=== PATIENT | male | born 1935 | race Hispanic/Latino ===

== ENCOUNTER 2021-10-23 23:04 | Inpatient (IN) | payer MEDICARE, OTHER ==
[~2021-10-23] VITALS: Ht 165.1 cm
[~2021-10-23 23:04] MED LIST: ALBUTEROL SULF8.5 GM INH; ALBUTEROL2.5 MG/0.5 INH; AMLODIPINE BESY10 MG PEG; ARTIFICIAL TEA1 EAC1 OP; CEFEPIME HCL1 GM SQ; ENALAPRIL MALE2.5 MG PO; ETODOLAC500 M1 PO; FENOFIBRATE145 MG PO; FERROUS SU220 MG/5 M PEG; FUROSEMIDE40 MG PEG; GABAPENTIN300 MG PO; GLIPIZIDE10 MG PO; HEPARIN SO5000 UNIT2 SQ; HUMALOG100 UNIT/1 SC; LEVAQUIN-D750 MG/150 IV; LEVEMIR100 UNIT/1 SC; LEVEMIR100 UNIT/1 SQ; LEVOTHYROXINE75 MCG PEG; LISINOPRIL10 MG PO; METFORMIN HCL1000 MG PO; METOPROLOL TART50 MG PEG; METOPROLOL TART50 MG PO; ONDANSETRO4 MG/UDTAB PO; PANTOPRAZOLE SO40 MG PEG; PIOGLITAZONE45 MG OP; POTASSIUM CHLO10 ME1 PEG; SIMVASTATIN40 MG PO; TAMSULOSIN HCL0.4 MG PO; TIZANIDINE HCL4 M1 PO; ULTRAM 50MG50 MG PO; ULTRAM50 MG PO; ZYRTEC10 M3 PEG
[2021-10-23] MEDS ORDERED: SODIUM CHLORIDE 0.9% 1000ML 1,000 ML IV STA (23:09)
[2021-10-23 23:27] LABS: BASOPHILS % 0.3 % (0.0-1.0); EOSINOPHILS # (AUTO) 0.1 (0.0-0.4); EOSINOPHILS % 0.8 % (0.0-6.0); HEMATOCRIT 35.6 % (38.2-49.6); HEMOGLOBIN 11.1 g/dL (14.0-18.0); LYMPHOCYTES # (AUTO) 3.5 (1.0-3.2); LYMPHOCYTES % 23.6 % (18.0-39.1); MEAN CORPUSCULAR HEMOGLOBIN 30.7 pg (28-32); MEAN CORPUSCULAR HGB CONC 31.2 g/dL (31-35); MEAN CORPUSCULAR VOLUME 98.3 fL (81-99); MONOCYTES # (AUTO) 1.1 (0.2-0.8); MONOCYTES % 7.1 % (4.4-11.3); NEUTROPHILS # (AUTO) 10.1 (2.1-6.9); NEUTROPHILS % 67.6 % (38.7-80.0); PLATELET COUNT 278 x10e3/uL (140-360); RED BLOOD COUNT 3.62 x10e6/uL (4.3-5.7); RED CELL DISTRIBUTION WIDTH 14.2 % (11.7-14.4)
[2021-10-23 23:52] LABS: ALBUMIN 2.1 g/dL (3.5-5.0); ALBUMIN/GLOBULIN RATIO 0.5 (0.8-2.0); ANION GAP 15.8 mmol/L (8-16); CALCIUM 9.3 mg/dL (8.4-10.2); CREATININE, SERUM 1.75 mg/dL (0.72-1.25); POTASSIUM 3.8 mmol/L (3.5-5.1)
[2021-10-23 23:53] LABS: B-TYPE NATRIURETIC PEPTIDE2 < 10.0 pg/mL (0-100)
[2021-10-24] VITALS (9 sets, daily range): BP systolic 93–119; BP diastolic 45–74
[2021-10-24] MEDS ORDERED: PIPERACILLIN/TAZOBACTAM 3.375 GM in SODIUM CHLORIDE 0.9% 50ML 50 ML IV ONE ×2
[2021-10-24] MEDS ORDERED: SODIUM CHLORIDE 0.9% 1000ML 1,000 ML IV STA ×2 (00:07)
[2021-10-24] MEDS ORDERED: SODIUM CHLORIDE 0.9% 1000ML 1,000 ML IV SCH (00:45)
[2021-10-24] MEDS ORDERED: Morphine 2mg Syringe 2 MG/ML SYR IV STA (01:27)
[2021-10-24] MEDS: NOREPINEPHRINE 8 MG/D5W 250 ML 250 ML IV SCH (01:30)
[2021-10-24 03:34] LABS: CLARITY,URINE CLEAR (CLEAR); COLOR,URINE YELLOW (YELLOW); KETONES,URINE NEGATIVE (NEGATIVE); LEUKOCYTE ESTERASE ,URINE NEGATIVE (NEGATIVE); NITRITE,URINE NEGATIVE (NEGATIVE); PROTEIN,URINE DIPSTICK NEGATIVE (NEGATIVE); URINE UROBILINOGEN 0.2 mg/dL (0.2 - 1)
[2021-10-24 03:39] LABS: BACTERIA,URINE FEW /HPF; EPITHELIAL CELLS,URINE MODERATE /LPF; WBC,URINE (MAN) 0-5 /HPF (0-5)
[2021-10-24] MEDS ORDERED: HYDRALAZINE HCL 20 MG/ML VIAL IV PRN (04:15)
[2021-10-24] MEDS ORDERED: DEXTROSE 50% SYRINGE 50 ML IV PRN (04:15)
[2021-10-24] MEDS ORDERED: ACETAMINOPHEN 325 MG TAB PEG PRN (04:15)
[2021-10-24] MEDS ORDERED: LACTATED RINGER'S 1,000 ML INJ SCH (04:15)
[2021-10-24] MEDS ORDERED: THIAMINE HCL 100 MG TAB PEG ONE (04:15)
[2021-10-24] MEDS ORDERED: Vancomycin IV 1 GM in SODIUM CHLORIDE 0.9% 250ML 250 ML IV ONE (04:15)
[2021-10-24] MEDS ORDERED: ONDANSETRON HCL INJ 2MG/ML 2ML 2 MG/ML VIAL IV PRN (04:15)
[2021-10-24] MEDS ORDERED: TRAMADOL HCL 50 MG TAB PEG PRN (04:15)
[2021-10-24] MEDS: INSULIN REGULAR, HUMAN 100 UNIT/1 ML SQ SCH ×4 (06:00→19:17)
[2021-10-24] MEDS: PIPERACILLIN/TAZOBACTAM 3.375 GM in SODIUM CHLORIDE 0.9% 50ML 50 ML IV SCH ×4 (07:12→23:42)
[2021-10-24] MEDS: DOCUSATE SODIUM LIQD 100 MG/10 ML UDC PEG SCH ×2 (07:55→21:17)
[2021-10-24] MEDS: LEVOTHYROXINE SODIUM 75 MCG TAB PEG SCH (07:55)
[2021-10-24] MEDS: FERROUS SULFATE 300 MG/5 ML LIQD PEG SCH ×2 (07:55→17:33)
[2021-10-24] MEDS: MULTIVITAMINS/MINERALS TAB PEG SCH (07:55)
[2021-10-24] MEDS ORDERED: SODIUM CHLORIDE 0.9% 500ML 500 ML IV ONE (09:15)
[2021-10-24] MEDS: SODIUM CHLORIDE 0.9% 1000ML 1,000 ML IV SCH ×2 (09:15→21:17)
[2021-10-24 09:20] LABS: BASOPHILS # (AUTO) 0.1 (0.0-0.1); BASOPHILS % 0.4 % (0.0-1.0); EOSINOPHILS # (AUTO) 0.3 (0.0-0.4); EOSINOPHILS % 2.3 % (0.0-6.0); HEMATOCRIT 35.6 % (38.2-49.6); HEMOGLOBIN 10.8 g/dL (14.0-18.0); LYMPHOCYTES # (AUTO) 2.9 (1.0-3.2); LYMPHOCYTES % 24.8 % (18.0-39.1); MEAN CORPUSCULAR HEMOGLOBIN 30.7 pg (28-32); MEAN CORPUSCULAR HGB CONC 30.3 g/dL (31-35); MEAN CORPUSCULAR VOLUME 101.1 fL (81-99); MONOCYTES # (AUTO) 0.7 (0.2-0.8); MONOCYTES % 5.8 % (4.4-11.3); NEUTROPHILS # (AUTO) 7.6 (2.1-6.9); NEUTROPHILS % 65.8 % (38.7-80.0); PLATELET COUNT 272 x10e3/uL (140-360); RED BLOOD COUNT 3.52 x10e6/uL (4.3-5.7); RED CELL DISTRIBUTION WIDTH 14.4 % (11.7-14.4)
[2021-10-24] MEDS ORDERED: SODIUM CHLORIDE 0.9% 500ML 500 ML ONE (09:22)
[2021-10-24 09:44] LABS: ANION GAP 13.6 mmol/L (8-16); CALCIUM 8.4 mg/dL (8.4-10.2); CREATININE, SERUM 1.41 mg/dL (0.72-1.25); POTASSIUM 3.6 mmol/L (3.5-5.1)
[2021-10-24 09:48] LABS: CHOL/HDL RATIO 2.6 (3.9-4.7)
[2021-10-24 10:08] LABS: CREATINE KINASE MB 2.6 ng/mL (0-5.0)
[2021-10-24] MEDS ORDERED: ENOXAPARIN SOD INJ 40 MG/0.4 ML SYR SC SCH (17:00)
[2021-10-24 19:00] LABS: CREATINE KINASE MB 1.8 ng/mL (0-5.0)
[2021-10-24] MEDS ORDERED: INSULIN GLARGINE 100 UNITS/ML VIAL SQ SCH (21:00)
[2021-10-25] VITALS: BP 79/50
[2021-10-25] MEDS: INSULIN REGULAR, HUMAN 100 UNIT/1 ML SQ SCH ×3 (00:46→12:00)
[2021-10-25] MEDS: NOREPINEPHRINE 8 MG/D5W 250 ML 250 ML IV SCH (00:56)
[2021-10-25 04:08] VITALS: BP 101/56
[2021-10-25] MEDS: PIPERACILLIN/TAZOBACTAM 3.375 GM in SODIUM CHLORIDE 0.9% 50ML 50 ML IV SCH ×2 (05:43→12:00)
[2021-10-25 07:38] VITALS: BP 99/50
[2021-10-25 07:41] LABS: BASOPHILS # (AUTO) 0.1 (0.0-0.1); BASOPHILS % 0.8 % (0.0-1.0); EOSINOPHILS # (AUTO) 0.6 (0.0-0.4); EOSINOPHILS % 5.9 % (0.0-6.0); LYMPHOCYTES # (AUTO) 2.3 (1.0-3.2); LYMPHOCYTES % 23.5 % (18.0-39.1); MEAN CORPUSCULAR HEMOGLOBIN 30.2 pg (28-32); MEAN CORPUSCULAR HGB CONC 30.6 g/dL (31-35); MEAN CORPUSCULAR VOLUME 98.9 fL (81-99); MONOCYTES # (AUTO) 0.6 (0.2-0.8); MONOCYTES % 6.4 % (4.4-11.3); NEUTROPHILS # (AUTO) 6.1 (2.1-6.9); NEUTROPHILS % 62.4 % (38.7-80.0); PLATELET COUNT 246 x10e3/uL (140-360); RED BLOOD COUNT 3.64 x10e6/uL (4.3-5.7); RED CELL DISTRIBUTION WIDTH 14.2 % (11.7-14.4)
[2021-10-25 08:10] LABS: MAGNESIUM 1.8 MG/DL (1.3-2.1); PHOSPHORUS 1.9 MG/DL (2.3-4.7)
[2021-10-25 08:31] LABS: ALBUMIN 1.8 g/dL (3.5-5.0); ALBUMIN/GLOBULIN RATIO 0.4 (0.8-2.0); ANION GAP 13.2 mmol/L (8-16); CALCIUM 8.7 mg/dL (8.4-10.2); CREATININE, SERUM 1.06 mg/dL (0.72-1.25); POTASSIUM 3.2 mmol/L (3.5-5.1)
[2021-10-25 08:31] LABS: FERRITIN 212.73 ng/mL (21.81-274.66); THYROID STIMULATING HORMONE 8.483 uIU/mL (0.350-4.940)
[2021-10-25 08:43] LABS: CREATINE KINASE MB 0.7 ng/mL (0-5.0)
[2021-10-25 09:00] VITALS: BP 99/50
[2021-10-25] MEDS ORDERED: BALSAM PERU/CASTOR OIL 60 GM OINT...G. TP SCH (09:00)
[2021-10-25] MEDS: MULTIVITAMINS/MINERALS TAB PEG SCH (09:34)
[2021-10-25] MEDS: LEVOTHYROXINE SODIUM 75 MCG TAB PEG SCH (09:34)
[2021-10-25] MEDS: FERROUS SULFATE 300 MG/5 ML LIQD PEG SCH (09:34)
[2021-10-25] MEDS: DOCUSATE SODIUM LIQD 100 MG/10 ML UDC PEG SCH (09:34)
[2021-10-25] MEDS ORDERED: POTASSIUM CHLORIDE 20 MEQ TAB CR PO STA (10:44)
[2021-10-25] MEDS ORDERED: SODIUM CHLORIDE 0.45% 1,000 ML IV ONE (10:45)
[2021-10-25] MEDS ORDERED: CEFUROXIME250 MG PO (11:34)
[2021-10-25] MEDS ORDERED: AZITHROMYCIN500 MG PEG (11:34)
[2021-10-25 11:42] VITALS: BP 95/45
[2021-10-25 15:46] VITALS: BP 95/55
== END 2021-10-25 15:59 | DRG 871 ==
LOC: ER 23:09 → ERHOLD 10-24 01:15 → MED/SURG2 10-24 13:48
PROVIDERS: ADMIT Internal Medicine; ATTEND Internal Medicine
DX: A41.9 Sepsis, unspecified organism (principal); J18.9 Pneumonia, unspecified organism; R65.21 Severe sepsis with septic shock; J96.01 Acute respiratory failure with hypoxia; M62.82 Rhabdomyolysis; E87.0 Hyperosmolality and hypernatremia; N17.9 Acute kidney failure, unspecified; G93.1 Anoxic brain damage, not elsewhere classified; E11.9 Type 2 diabetes mellitus without complications; E88.09 Other disorders of plasma-protein metabolism, not elsewhere classified; Z96.642 Presence of left artificial hip joint; D64.9 Anemia, unspecified; Z93.1 Gastrostomy status; F03.90 Unspecified dementia, unspecified severity, without behavioral disturbance, psychotic disturbance, mood disturbance, and anxiety; Z86.79 Personal history of other diseases of the circulatory system
CPT/HCPCS: 36415; 51700; 71045; 76770; 80048; 80053; 80061; 81001; 82550; 82553; 82728; 82948; 83036; 83540; 83605; 83690; 83735; 83880; 84100; 84443; 84466; 84484; 85025; 87040; 93005; 93306; 94799; 97139; 99251; 99285; J0456; J1650; J1815; J1817; J2270; J2543; J3370; J7030; J7040; J7050; J7121; U0002

== ENCOUNTER 2022-03-10 17:26 | Inpatient (IN) | payer MEDICARE, OTHER ==
[~2022-03-10] VITALS: Ht 165.1 cm; Wt 69.4 kg
[~2022-03-10 17:26] MED LIST changes: +AZITHROMYCIN500 MG PEG; +CEFUROXIME250 MG PO; +Vancomycin IV 1 GM in SODIUM CHLORIDE 0.9% 250ML 250 ML IV SCH
[2022-03-10] MEDS ORDERED: ACETAMINOPHEN 325 MG TAB PO STA (17:29)
[2022-03-10] MEDS ORDERED: ACETAMINOPHEN 1000 MG/100 ML IV STA (17:39)
[2022-03-10 17:59] LABS: BASOPHILS # (AUTO) 0.1 (0.0-0.1); BASOPHILS % 0.7 % (0.0-1.0); EOSINOPHILS # (AUTO) 0.1 (0.0-0.4); EOSINOPHILS % 0.7 % (0.0-6.0); HEMATOCRIT 42.6 % (38.2-49.6); HEMOGLOBIN 13.3 g/dL (14.0-18.0); LYMPHOCYTES # (AUTO) 4.6 (1.0-3.2); LYMPHOCYTES % 22.3 % (18.0-39.1); MEAN CORPUSCULAR HEMOGLOBIN 30.2 pg (28-32); MEAN CORPUSCULAR HGB CONC 31.2 g/dL (31-35); MEAN CORPUSCULAR VOLUME 96.6 fL (81-99); MONOCYTES # (AUTO) 0.9 (0.2-0.8); MONOCYTES % 4.2 % (4.4-11.3); NEUTROPHILS # (AUTO) 14.4 (2.1-6.9); NEUTROPHILS % 70.1 % (38.7-80.0); PLATELET COUNT 239 x10e3/uL (140-360); RED BLOOD COUNT 4.41 x10e6/uL (4.3-5.7)
[2022-03-10 18:12] LABS: ALBUMIN 2.4 g/dL (3.5-5.0); ALBUMIN/GLOBULIN RATIO 0.3 (0.8-2.0); ANION GAP 17.1 mmol/L (8-16); CALCIUM 10.5 mg/dL (8.4-10.2); CREATININE, SERUM 1.2 mg/dL (0.72-1.25); POTASSIUM 4.1 mmol/L (3.5-5.1)
[2022-03-10 18:18] LABS: CREATINE KINASE MB 0.7 ng/mL (0-5.0)
[2022-03-10] MEDS ORDERED: SODIUM CHLORIDE 0.9% 1000ML 1,000 ML IV STA (18:35)
[2022-03-10] MEDS ORDERED: DEXTROSE 5% 1,000 ML IV ONE (18:45)
[2022-03-10] MEDS: SODIUM CHLORIDE 0.9% 1000ML 1,000 ML IV SCH ×2 (18:47→18:48)
[2022-03-10] MEDS: DEXTROSE 5% 1,000 ML IV SCH (20:15)
[2022-03-10] MEDS ORDERED: ONDANSETRON HCL INJ 2MG/ML 2ML 2 MG/ML VIAL IV PRN (20:15)
[2022-03-10] MEDS ORDERED: DOCUSATE SODIUM 100 MG CAP PO PRN (20:15)
[2022-03-10] MEDS ORDERED: BENZONATATE 100 MG CAP PO PRN (20:15)
[2022-03-10] MEDS ORDERED: ALBUTEROL/IPRATROPIUM 3 ML NEB NEB PRN (20:15)
[2022-03-10] MEDS ORDERED: HYDRALAZINE HCL 20 MG/ML VIAL IV PRN (20:15)
[2022-03-10] MEDS ORDERED: LIDOCAINE 4% PATCH TP PRN (20:15)
[2022-03-10] MEDS ORDERED: DEXTROSE 50% SYRINGE 50 ML IV PRN ×2 (20:15)
[2022-03-10] MEDS ORDERED: POTASSIUM CHLORIDE 20 MEQ TAB CR PO PRN (20:15)
[2022-03-10] MEDS ORDERED: DIPHENHYDRAMINE HCL 25 MG CAP PO PRN (20:15)
[2022-03-10] MEDS: INSULIN LISPRO 100 UNIT/1 ML 3ML VIAL SQ SCH (21:00)
[2022-03-10] MEDS ORDERED: Vancomycin IV 1 GM in SODIUM CHLORIDE 0.9% 250ML 250 ML IV ONE (21:00)
[2022-03-10 21:18] LABS: ABG HCO3 27 mmol/L (22-26); ABG PCO2 31 mmHg (35-45); ABG PH 7.53 (7.35-7.45); ABG PO2 95 mmHg (80-105); ABG TCO2 27
[2022-03-11] VITALS (10 sets, daily range): BP systolic 121–147; BP diastolic 69–92
[2022-03-11 06:23] LABS: BASOPHILS # (AUTO) 0.1 (0.0-0.1); BASOPHILS % 0.7 % (0.0-1.0); EOSINOPHILS # (AUTO) 0.5 (0.0-0.4); EOSINOPHILS % 3.3 % (0.0-6.0); HEMATOCRIT 40.4 % (38.2-49.6); HEMOGLOBIN 12.3 g/dL (14.0-18.0); LYMPHOCYTES # (AUTO) 3.8 (1.0-3.2); LYMPHOCYTES % 25.5 % (18.0-39.1); MEAN CORPUSCULAR HEMOGLOBIN 30.4 pg (28-32); MEAN CORPUSCULAR HGB CONC 30.4 g/dL (31-35); MEAN CORPUSCULAR VOLUME 99.8 fL (81-99); MONOCYTES # (AUTO) 0.7 (0.2-0.8); MONOCYTES % 4.7 % (4.4-11.3); NEUTROPHILS # (AUTO) 9.6 (2.1-6.9); NEUTROPHILS % 65.1 % (38.7-80.0); PLATELET COUNT 235 x10e3/uL (140-360); RED BLOOD COUNT 4.05 x10e6/uL (4.3-5.7); RED CELL DISTRIBUTION WIDTH 13.9 % (11.7-14.4)
[2022-03-11 06:40] LABS: ALBUMIN 2.1 g/dL (3.5-5.0); ALBUMIN/GLOBULIN RATIO 0.3 (0.8-2.0); ANION GAP 12.5 mmol/L (8-16); CALCIUM 8.6 mg/dL (8.4-10.2); CREATININE, SERUM 0.87 mg/dL (0.72-1.25); POTASSIUM 3.5 mmol/L (3.5-5.1)
[2022-03-11] MEDS: PANTOPRAZOLE SOD 40 MG TABEC PO SCH (07:30)
[2022-03-11 07:49] LABS: CREATINE KINASE MB 0.5 ng/mL (0-5.0)
[2022-03-11] MEDS: INSULIN LISPRO 100 UNIT/1 ML 3ML VIAL SQ SCH ×4 (08:02→21:30)
[2022-03-11] MEDS: DEXTROSE 5% 1,000 ML IV SCH (09:52)
[2022-03-11] MEDS: Vancomycin IV 1 GM in SODIUM CHLORIDE 0.9% 250ML 250 ML IV SCH ×2 (11:26→22:45)
[2022-03-11 13:16] LABS: CREATINE KINASE MB 0.5 ng/mL (0-5.0)
[2022-03-11] MEDS: MELATONIN 5 MG TABLET PO PRN (22:45)
[2022-03-11] MEDS: SIMETHICONE 80 MG CHEW PO PRN (22:45)
[2022-03-11] MEDS: ACETAMINOPHEN 325 MG TAB PO PRN (22:45)
[2022-03-11] MEDS: INSULIN GLARGINE 100 UNITS/ML VIAL SQ SCH (23:35)
[2022-03-12] VITALS (8 sets, daily range): BP systolic 107–137; BP diastolic 60–76
[2022-03-12 06:25] LABS: BASOPHILS # (AUTO) 0.1 (0.0-0.1); BASOPHILS % 0.6 % (0.0-1.0); EOSINOPHILS # (AUTO) 0.6 (0.0-0.4); EOSINOPHILS % 5.4 % (0.0-6.0); HEMATOCRIT 35.9 % (38.2-49.6); HEMOGLOBIN 10.8 g/dL (14.0-18.0); LYMPHOCYTES # (AUTO) 3.1 (1.0-3.2); LYMPHOCYTES % 27.1 % (18.0-39.1); MEAN CORPUSCULAR HEMOGLOBIN 29.9 pg (28-32); MEAN CORPUSCULAR HGB CONC 30.1 g/dL (31-35); MEAN CORPUSCULAR VOLUME 99.4 fL (81-99); MONOCYTES # (AUTO) 0.5 (0.2-0.8); MONOCYTES % 4.8 % (4.4-11.3); NEUTROPHILS % 61.5 % (38.7-80.0); PLATELET COUNT 213 x10e3/uL (140-360); RED BLOOD COUNT 3.61 x10e6/uL (4.3-5.7); RED CELL DISTRIBUTION WIDTH 13.7 % (11.7-14.4)
[2022-03-12 07:02] LABS: CALCIUM 8.3 mg/dL (8.4-10.2); CREATININE, SERUM 0.82 mg/dL (0.72-1.25)
[2022-03-12] MEDS: PANTOPRAZOLE SOD 40 MG TABEC PO SCH (07:30)
[2022-03-12] MEDS ORDERED: DEXTROSE 50% SYRINGE 50 ML IV PRN (07:45)
[2022-03-12] MEDS: INSULIN LISPRO 100 UNIT/1 ML 3ML VIAL SQ SCH ×4 (08:16→22:00)
[2022-03-12] MEDS: METOPROLOL TARTRATE 50 MG TAB PEG SCH ×2 (08:17→21:00)
[2022-03-12] MEDS: LEVOTHYROXINE SODIUM 75 MCG TAB PEG SCH (08:17)
[2022-03-12] MEDS: AMLODIPINE BESYLATE 10 MG TAB PEG SCH (08:17)
[2022-03-12] MEDS: BALSAM PERU/CASTOR OIL 60 GM OINT...G. TP SCH (08:18)
[2022-03-12] MEDS: Vancomycin IV 1 GM in SODIUM CHLORIDE 0.9% 250ML 250 ML IV SCH ×2 (12:08→23:15)
[2022-03-12] MEDS: ACETAMINOPHEN 325 MG TAB PO PRN (12:19)
[2022-03-12 16:12] LABS: CLARITY,URINE TURBID (CLEAR); COLOR,URINE STRAW (YELLOW); KETONES,URINE NEGATIVE (NEGATIVE); LEUKOCYTE ESTERASE ,URINE LARGE (NEGATIVE); NITRITE,URINE NEGATIVE (NEGATIVE); PROTEIN,URINE DIPSTICK 1+ (NEGATIVE); URINE UROBILINOGEN 0.2 mg/dL (0.2 - 1)
[2022-03-12 16:20] LABS: BACTERIA,URINE MODERATE /HPF; EPITHELIAL CELLS,URINE MANY /LPF; WBC,URINE (MAN) >50 /HPF (0-5)
[2022-03-12] MEDS: TRAMADOL HCL 50 MG TAB PO PRN ×2 (16:21→22:39)
[2022-03-12] MEDS: ENOXAPARIN SOD INJ 40 MG/0.4 ML SYR SC SCH (17:15)
[2022-03-12] MEDS: INSULIN GLARGINE 100 UNITS/ML VIAL SQ SCH (22:00)
[2022-03-12] MEDS: SIMETHICONE 80 MG CHEW PO PRN (22:38)
[2022-03-12] MEDS: MELATONIN 5 MG TABLET PO PRN (22:38)
[2022-03-13] VITALS (8 sets, daily range): BP systolic 101–115; BP diastolic 57–74
[2022-03-13 07:14] LABS: BASOPHILS # (AUTO) 0.1 (0.0-0.1); BASOPHILS % 0.9 % (0.0-1.0); EOSINOPHILS # (AUTO) 0.7 (0.0-0.4); EOSINOPHILS % 6.7 % (0.0-6.0); HEMATOCRIT 39.1 % (38.2-49.6); HEMOGLOBIN 11.3 g/dL (14.0-18.0); LYMPHOCYTES # (AUTO) 2.7 (1.0-3.2); LYMPHOCYTES % 27.6 % (18.0-39.1); MEAN CORPUSCULAR HEMOGLOBIN 29.7 pg (28-32); MEAN CORPUSCULAR HGB CONC 28.9 g/dL (31-35); MEAN CORPUSCULAR VOLUME 102.9 fL (81-99); MONOCYTES # (AUTO) 0.5 (0.2-0.8); MONOCYTES % 4.9 % (4.4-11.3); NEUTROPHILS # (AUTO) 5.8 (2.1-6.9); NEUTROPHILS % 58.9 % (38.7-80.0); PLATELET COUNT 134 x10e3/uL (140-360); RED CELL DISTRIBUTION WIDTH 13.6 % (11.7-14.4)
[2022-03-13] MEDS: LEVOTHYROXINE SODIUM 75 MCG TAB PEG SCH (07:30)
[2022-03-13] MEDS: PANTOPRAZOLE SOD 40 MG TABEC PO SCH (07:30)
[2022-03-13 07:40] LABS: ANION GAP 13.3 mmol/L (8-16); CALCIUM 8.3 mg/dL (8.4-10.2); CREATININE, SERUM 0.75 mg/dL (0.72-1.25); POTASSIUM 4.3 mmol/L (3.5-5.1)
[2022-03-13] MEDS: INSULIN LISPRO 100 UNIT/1 ML 3ML VIAL SQ SCH ×4 (08:00→21:00)
[2022-03-13] MEDS: METOPROLOL TARTRATE 50 MG TAB PEG SCH ×2 (09:00→21:13)
[2022-03-13] MEDS: AMLODIPINE BESYLATE 10 MG TAB PEG SCH (09:00)
[2022-03-13] MEDS ORDERED: FUROSEMIDE INJ 10 MG/ML 4 ML VIAL IV ONE (11:00)
[2022-03-13] MEDS: Vancomycin IV 1 GM in SODIUM CHLORIDE 0.9% 250ML 250 ML IV SCH (11:00)
[2022-03-13] MEDS: BALSAM PERU/CASTOR OIL 60 GM OINT...G. TP SCH (12:02)
[2022-03-13] MEDS: ENOXAPARIN SOD INJ 40 MG/0.4 ML SYR SC SCH (16:44)
[2022-03-13] MEDS: INSULIN GLARGINE 100 UNITS/ML VIAL SQ SCH (21:00)
[2022-03-13] MEDS: TRAMADOL HCL 50 MG TAB PO PRN ×2 (21:30→22:30)
[2022-03-13] MEDS: MELATONIN 5 MG TABLET PO PRN (22:00)
[2022-03-14] MEDS: TRAMADOL HCL 50 MG TAB PO PRN (06:01)
[2022-03-14 06:04] VITALS: BP 107/58
[2022-03-14] MEDS: PANTOPRAZOLE SOD 40 MG TABEC PO SCH (07:30)
[2022-03-14 08:00] VITALS: BP 105/86
[2022-03-14 08:07] VITALS: BP 105/86
[2022-03-14] MEDS: METOPROLOL TARTRATE 50 MG TAB PEG SCH ×2 (08:25→19:59)
[2022-03-14] MEDS: INSULIN LISPRO 100 UNIT/1 ML 3ML VIAL SQ SCH ×4 (08:25→20:52)
[2022-03-14] MEDS: LEVOTHYROXINE SODIUM 75 MCG TAB PEG SCH (08:25)
[2022-03-14] MEDS: AMLODIPINE BESYLATE 10 MG TAB PEG SCH (08:26)
[2022-03-14] MEDS: BALSAM PERU/CASTOR OIL 60 GM OINT...G. TP SCH (10:17)
[2022-03-14 10:34] LABS: ANION GAP 11.8 mmol/L (8-16); CALCIUM 8.3 mg/dL (8.4-10.2); CREATININE, SERUM 0.8 mg/dL (0.72-1.25); POTASSIUM 3.8 mmol/L (3.5-5.1)
[2022-03-14] MEDS ORDERED: Vancomycin IV 1 GM in SODIUM CHLORIDE 0.9% 250ML 250 ML IV SCH (12:00)
[2022-03-14 12:04] VITALS: BP 104/55
[2022-03-14 16:12] VITALS: BP 113/59
[2022-03-14] MEDS: DEXTROSE 5%/0.9% SOD CHL 1,000 ML IV SCH (17:35)
[2022-03-14] MEDS: ENOXAPARIN SOD INJ 40 MG/0.4 ML SYR SC SCH (17:35)
[2022-03-14 19:48] VITALS: BP 100/68
[2022-03-15] VITALS (8 sets, daily range): BP systolic 98–129; BP diastolic 62–82
[2022-03-15] MEDS: DEXTROSE 5%/0.9% SOD CHL 1,000 ML IV SCH ×2 (05:37→23:31)
[2022-03-15] MEDS: LEVOTHYROXINE SODIUM 75 MCG TAB PEG SCH (07:30)
[2022-03-15] MEDS: PANTOPRAZOLE SOD 40 MG TABEC PO SCH (07:30)
[2022-03-15 08:09] LABS: % IRON SATURATION 19 % (15-50); IRON 39 ug/dL (65-175); TOTAL IRON BINDING CAPACITY 210 ug/dL (261-478); TRANSFERRIN 150 mg/dL (174-364)
[2022-03-15 08:57] LABS: BASOPHILS # (AUTO) 0.1 (0.0-0.1); BASOPHILS % 0.7 % (0.0-1.0); EOSINOPHILS # (AUTO) 0.7 (0.0-0.4); EOSINOPHILS % 5.6 % (0.0-6.0); HEMATOCRIT 39.7 % (38.2-49.6); HEMOGLOBIN 11.7 g/dL (14.0-18.0); LYMPHOCYTES # (AUTO) 2.4 (1.0-3.2); LYMPHOCYTES % 19.9 % (18.0-39.1); MEAN CORPUSCULAR HEMOGLOBIN 29.7 pg (28-32); MEAN CORPUSCULAR HGB CONC 29.5 g/dL (31-35); MEAN CORPUSCULAR VOLUME 100.8 fL (81-99); MONOCYTES # (AUTO) 0.5 (0.2-0.8); MONOCYTES % 4.6 % (4.4-11.3); NEUTROPHILS % 67.7 % (38.7-80.0); PLATELET COUNT 207 x10e3/uL (140-360); RED BLOOD COUNT 3.94 x10e6/uL (4.3-5.7); RED CELL DISTRIBUTION WIDTH 13.6 % (11.7-14.4)
[2022-03-15] MEDS: METOPROLOL TARTRATE 50 MG TAB PEG SCH ×2 (09:00→21:00)
[2022-03-15] MEDS: AMLODIPINE BESYLATE 10 MG TAB PEG SCH (09:00)
[2022-03-15 09:05] LABS: ANION GAP 15.7 mmol/L (8-16); CALCIUM 8.2 mg/dL (8.4-10.2); CREATININE, SERUM 0.78 mg/dL (0.72-1.25); POTASSIUM 3.7 mmol/L (3.5-5.1)
[2022-03-15] MEDS: INSULIN LISPRO 100 UNIT/1 ML 3ML VIAL SQ SCH ×4 (10:00→21:00)
[2022-03-15] MEDS: Vancomycin IV 1 GM in SODIUM CHLORIDE 0.9% 250ML 250 ML IV SCH (10:02)
[2022-03-15] MEDS ORDERED: SCOPOLAMINE 1 MG PATCH TOP ONE ×2 (14:45→16:00)
[2022-03-15] MEDS: ENOXAPARIN SOD INJ 40 MG/0.4 ML SYR SC SCH (17:52)
[2022-03-15] MEDS: BALSAM PERU/CASTOR OIL 60 GM OINT...G. TP SCH (17:52)
[2022-03-16] VITALS (7 sets, daily range): BP systolic 114–129; BP diastolic 68–79
[2022-03-16] MEDS: LEVOTHYROXINE SODIUM 75 MCG TAB PEG SCH (07:30)
[2022-03-16] MEDS: PANTOPRAZOLE SOD 40 MG TABEC PO SCH (07:30)
[2022-03-16] MEDS: INSULIN LISPRO 100 UNIT/1 ML 3ML VIAL SQ SCH ×4 (08:30→21:55)
[2022-03-16] MEDS: AMLODIPINE BESYLATE 10 MG TAB PEG SCH (09:00)
[2022-03-16] MEDS: DEXTROSE 5%/0.9% SOD CHL 1,000 ML IV SCH ×2 (09:00→22:25)
[2022-03-16] MEDS: METOPROLOL TARTRATE 50 MG TAB PEG SCH ×2 (09:00→21:55)
[2022-03-16] MEDS: Vancomycin IV 1 GM in SODIUM CHLORIDE 0.9% 250ML 250 ML IV SCH (09:53)
[2022-03-16] MEDS ORDERED: PROPOFOL IV EMULSION 10 MG/ML 20 ML VIAL ONE (12:38)
[2022-03-16] MEDS: BALSAM PERU/CASTOR OIL 60 GM OINT...G. TP SCH (17:30)
[2022-03-16] MEDS: ENOXAPARIN SOD INJ 40 MG/0.4 ML SYR SC SCH (17:30)
[2022-03-17] VITALS (7 sets, daily range): BP systolic 95–113; BP diastolic 47–72
[2022-03-17] MEDS: PANTOPRAZOLE SOD 40 MG TABEC PO SCH (07:30)
[2022-03-17] MEDS: INSULIN LISPRO 100 UNIT/1 ML 3ML VIAL SQ SCH ×3 (07:45→17:00)
[2022-03-17] MEDS: LEVOTHYROXINE SODIUM 75 MCG TAB PEG SCH (08:00)
[2022-03-17] MEDS: METOPROLOL TARTRATE 50 MG TAB PEG SCH (09:50)
[2022-03-17] MEDS: BALSAM PERU/CASTOR OIL 60 GM OINT...G. TP SCH (09:50)
[2022-03-17] MEDS: AMLODIPINE BESYLATE 10 MG TAB PEG SCH (09:50)
[2022-03-17] MEDS: Vancomycin IV 1 GM in SODIUM CHLORIDE 0.9% 250ML 250 ML IV SCH (09:50)
[2022-03-17] MEDS: DEXTROSE 5%/0.9% SOD CHL 1,000 ML IV SCH (11:43)
[2022-03-17] MEDS ORDERED: ONDANSETRON HCL 4 MG ORAL DISINTEGRATING TAB PO PRN (13:00)
[2022-03-17] MEDS: ENOXAPARIN SOD INJ 40 MG/0.4 ML SYR SC SCH (17:10)
== END 2022-03-17 17:15 | DRG 871 ==
LOC: ER 17:30 → ERHOLD 18:38 → MED/SURG3 23:42
PROVIDERS: ADMIT Internal Medicine; ATTEND Internal Medicine
PROC: 3E03329 Introduction of Other Anti-infective into Peripheral Vein, Percutaneous Approach (ICD-10-PCS; 2022-03-10)
PROC: 0DH68UZ Insertion of Feeding Device into Stomach, Via Natural or Artificial Opening Endoscopic (ICD-10-PCS; principal; 2022-03-16 15:43)
DX: A41.9 Sepsis, unspecified organism (principal); J18.9 Pneumonia, unspecified organism; J69.0 Pneumonitis due to inhalation of food and vomit; E87.0 Hyperosmolality and hypernatremia; G93.1 Anoxic brain damage, not elsewhere classified; K94.23 Gastrostomy malfunction; N39.0 Urinary tract infection, site not specified; N13.8 Other obstructive and reflux uropathy; E87.1 Hypo-osmolality and hyponatremia; R65.20 Severe sepsis without septic shock; E78.5 Hyperlipidemia, unspecified; D64.9 Anemia, unspecified; Z96.642 Presence of left artificial hip joint; E11.9 Type 2 diabetes mellitus without complications; E86.0 Dehydration; E83.52 Hypercalcemia; K20.90 Esophagitis, unspecified without bleeding; K29.70 Gastritis, unspecified, without bleeding; Z20.822 Contact with and (suspected) exposure to COVID-19; N31.9 Neuromuscular dysfunction of bladder, unspecified; R39.14 Feeling of incomplete bladder emptying; N39.46 Mixed incontinence; N47.1 Phimosis; N50.0 Atrophy of testis; N40.1 Benign prostatic hyperplasia with lower urinary tract symptoms; B95.62 Methicillin resistant Staphylococcus aureus infection as the cause of diseases classified elsewhere; Z79.4 Long term (current) use of insulin
CPT/HCPCS: 36415; 36600; 43246; 71045; 74018; 80048; 80053; 80202; 81001; 82550; 82553; 82607; 82746; 82805; 82948; 83540; 83605; 84466; 84484; 85025; 85045; 87040; 87086; 87186; 93005; 94799; 99251; 99284; J0692; J1650; J1815; J2543; J3370; J7030; J7042; J7050; J7070

== ENCOUNTER 2022-04-11 12:44 | Inpatient (IN) | payer MEDICARE, OTHER ==
[~2022-04-11] VITALS: Ht 185.4 cm; Wt 82.1 kg
[2022-04-11] VITALS (23 sets, daily range): BP systolic 82–120; BP diastolic 47–103
[~2022-04-11 12:44] MED LIST changes: -Vancomycin IV 1 GM in SODIUM CHLORIDE 0.9% 250ML 250 ML IV SCH
[2022-04-11] MEDS ORDERED: LACTATED RINGER'S 1,000 ML INJ ONE ×2 (13:00→13:15)
[2022-04-11 13:16] LABS: BASOPHILS # (AUTO) 0.1 (0.0-0.1); BASOPHILS % 0.4 % (0.0-1.0); EOSINOPHILS % 0.2 % (0.0-6.0); HEMATOCRIT 44.2 % (38.2-49.6); HEMOGLOBIN 12.6 g/dL (14.0-18.0); LYMPHOCYTES # (AUTO) 3.7 (1.0-3.2); LYMPHOCYTES % 22.3 % (18.0-39.1); MEAN CORPUSCULAR HEMOGLOBIN 29.3 pg (28-32); MEAN CORPUSCULAR HGB CONC 28.5 g/dL (31-35); MEAN CORPUSCULAR VOLUME 102.8 fL (81-99); MONOCYTES # (AUTO) 0.9 (0.2-0.8); MONOCYTES % 5.4 % (4.4-11.3); NEUTROPHILS # (AUTO) 11.7 (2.1-6.9); PLATELET COUNT 199 x10e3/uL (140-360); RED CELL DISTRIBUTION WIDTH 15.8 % (11.7-14.4)
[2022-04-11 13:19] LABS: ABG HCO3 26 mmol/L (22-26); ABG PCO2 31 mmHg (35-45); ABG PH 7.52 (7.35-7.45); ABG PO2 50 mmHg (80-105); ABG TCO2 27
[2022-04-11 13:26] LABS: CLARITY,URINE SL CLOUDY (CLEAR); COLOR,URINE YELLOW (YELLOW)
[2022-04-11 13:27] LABS: BACTERIA,URINE FEW /HPF; EPITHELIAL CELLS,URINE FEW /LPF; KETONES,URINE NEGATIVE (NEGATIVE); LEUKOCYTE ESTERASE ,URINE NEGATIVE (NEGATIVE); NITRITE,URINE NEGATIVE (NEGATIVE); PROTEIN,URINE DIPSTICK 2+ (NEGATIVE); RBC,URINE >50 /HPF (0-5); RENAL EPITHELIAL CELLS,URINE MODERATE; WBC,URINE (MAN) 0-5 /HPF (0-5)
[2022-04-11 13:28] LABS: TRANSITIONAL EPI CELLS,URINE FEW
[2022-04-11 13:34] LABS: ALBUMIN 2.4 g/dL (3.5-5.0); ALBUMIN/GLOBULIN RATIO 0.4 (0.8-2.0); ANION GAP 17.1 mmol/L (8-16); CALCIUM 9.5 mg/dL (8.4-10.2); CREATININE, SERUM 1.95 mg/dL (0.72-1.25); POTASSIUM 4.1 mmol/L (3.5-5.1)
[2022-04-11] MEDS ORDERED: ONDANSETRON HCL INJ 2MG/ML 2ML 2 MG/ML VIAL IV PRN (13:45)
[2022-04-11] MEDS ORDERED: SODIUM CHLORIDE 0.9% 1000ML 1,000 ML IV SCH (13:45)
[2022-04-11] MEDS ORDERED: ALBUTEROL SULF 0.083% NEB SOLN 3 ML NEB INH PRN (14:00)
[2022-04-11] MEDS ORDERED: DEXTROSE 50% SYRINGE 50 ML IV PRN (14:00)
[2022-04-11] MEDS ORDERED: Vancomycin IV 500 MG in SODIUM CHLORIDE 0.9% 100 ML IV ONE (14:15)
[2022-04-11] MEDS ORDERED: Vancomycin IV 1 GM in SODIUM CHLORIDE 0.9% 250ML 250 ML IV ONE (15:15)
[2022-04-11] MEDS: DEXTROSE 5% 1,000 ML IV SCH (15:34)
[2022-04-11] MEDS: ACETAMINOPHEN 325 MG/10 ML UDC NG PRN ×2 (15:38→15:59)
[2022-04-11] MEDS: INSULIN REGULAR, HUMAN 100 UNIT/1 ML SQ SCH ×3 (17:09→20:40)
[2022-04-11 18:57] LABS: ALBUMIN 2.1 g/dL (3.5-5.0); ALBUMIN/GLOBULIN RATIO 0.4 (0.8-2.0); ANION GAP 12.5 mmol/L (8-16); CALCIUM 8.6 mg/dL (8.4-10.2); CREATININE, SERUM 1.62 mg/dL (0.72-1.25); POTASSIUM 3.5 mmol/L (3.5-5.1)
[2022-04-11] MEDS ORDERED: OYSTER SHELL C1 EA12 PO (19:00)
[2022-04-11] MEDS ORDERED: JUVEN PACKET1 EACH (19:00)
[2022-04-11] MEDS ORDERED: MULTIVITAMINS1 EAC6 PO (19:00)
[2022-04-11] MEDS: INSULIN GLARGINE 100 UNITS/ML VIAL SC SCH (20:43)
[2022-04-11] MEDS: HEPARIN SOD (PORCINE) 5,000 UNIT/ML VIAL SC SCH (20:43)
[2022-04-12] VITALS (31 sets, daily range): BP systolic 83–107; BP diastolic 46–71
[2022-04-12] MEDS: DEXTROSE 5% 1,000 ML IV SCH ×3 (01:43→21:03)
[2022-04-12] MEDS: LEVOTHYROXINE SODIUM 75 MCG TAB PEG SCH (05:24)
[2022-04-12 07:16] LABS: BASOPHILS # (AUTO) 0.1 (0.0-0.1); BASOPHILS % 0.5 % (0.0-1.0); EOSINOPHILS # (AUTO) 0.7 (0.0-0.4); EOSINOPHILS % 4.2 % (0.0-6.0); HEMATOCRIT 36.7 % (38.2-49.6); HEMOGLOBIN 10.3 g/dL (14.0-18.0); LYMPHOCYTES % 24.9 % (18.0-39.1); MEAN CORPUSCULAR HGB CONC 28.1 g/dL (31-35); MEAN CORPUSCULAR VOLUME 103.4 fL (81-99); MONOCYTES # (AUTO) 0.7 (0.2-0.8); MONOCYTES % 4.5 % (4.4-11.3); NEUTROPHILS # (AUTO) 10.3 (2.1-6.9); PLATELET COUNT 169 x10e3/uL (140-360); RED BLOOD COUNT 3.55 x10e6/uL (4.3-5.7); RED CELL DISTRIBUTION WIDTH 15.2 % (11.7-14.4)
[2022-04-12 07:38] LABS: ALBUMIN 1.9 g/dL (3.5-5.0); ALBUMIN/GLOBULIN RATIO 0.3 (0.8-2.0); ANION GAP 13.4 mmol/L (8-16); CALCIUM 8.4 mg/dL (8.4-10.2); CREATININE, SERUM 1.4 mg/dL (0.72-1.25); POTASSIUM 3.4 mmol/L (3.5-5.1)
[2022-04-12] MEDS: INSULIN REGULAR, HUMAN 100 UNIT/1 ML SQ SCH ×4 (07:54→21:08)
[2022-04-12] MEDS: HEPARIN SOD (PORCINE) 5,000 UNIT/ML VIAL SC SCH ×2 (08:42→21:04)
[2022-04-12] MEDS: ACETAMINOPHEN 325 MG/10 ML UDC NG PRN ×2 (08:55→17:27)
[2022-04-12] MEDS ORDERED: PANTOPRAZOLE SOD 40 MG TABEC PO SCH (09:00)
[2022-04-12] MEDS ORDERED: POTASSIUM CHLORIDE 20MEQ/100ML 200 ML IV ONE (09:30)
[2022-04-12] MEDS: ARTIFICIAL TEARS (OPTH) 15 ML BTL OP SCH ×2 (11:09→21:03)
[2022-04-12] MEDS ORDERED: DEXTRAN OP SCH (15:00)
[2022-04-12] MEDS ORDERED: HYPROMELLOSE OP SCH (15:00)
[2022-04-12] MEDS: INSULIN GLARGINE 100 UNITS/ML VIAL SC SCH (21:08)
[2022-04-13] VITALS (14 sets, daily range): BP systolic 88–100; BP diastolic 47–59
[2022-04-13] MEDS: LEVOTHYROXINE SODIUM 75 MCG TAB PEG SCH (06:04)
[2022-04-13 06:28] LABS: BASOPHILS % 0.3 % (0.0-1.0); EOSINOPHILS # (AUTO) 0.8 (0.0-0.4); HEMATOCRIT 31.1 % (38.2-49.6); HEMOGLOBIN 9.1 g/dL (14.0-18.0); LYMPHOCYTES # (AUTO) 2.3 (1.0-3.2); LYMPHOCYTES % 20.6 % (18.0-39.1); MEAN CORPUSCULAR HEMOGLOBIN 29.4 pg (28-32); MEAN CORPUSCULAR HGB CONC 29.3 g/dL (31-35); MEAN CORPUSCULAR VOLUME 100.6 fL (81-99); MONOCYTES # (AUTO) 0.5 (0.2-0.8); MONOCYTES % 4.2 % (4.4-11.3); NEUTROPHILS # (AUTO) 7.6 (2.1-6.9); NEUTROPHILS % 67.1 % (38.7-80.0); PLATELET COUNT 168 x10e3/uL (140-360); RED BLOOD COUNT 3.09 x10e6/uL (4.3-5.7); RED CELL DISTRIBUTION WIDTH 15.7 % (11.7-14.4)
[2022-04-13 06:53] LABS: ALBUMIN 1.7 g/dL (3.5-5.0); ALBUMIN/GLOBULIN RATIO 0.3 (0.8-2.0); ANION GAP 12.5 mmol/L (8-16); CALCIUM 7.4 mg/dL (8.4-10.2); CREATININE, SERUM 0.97 mg/dL (0.72-1.25); POTASSIUM 3.5 mmol/L (3.5-5.1)
[2022-04-13] MEDS: INSULIN REGULAR, HUMAN 100 UNIT/1 ML SQ SCH ×4 (07:39→22:06)
[2022-04-13] MEDS: DEXTROSE 5% 1,000 ML IV SCH (08:30)
[2022-04-13] MEDS: MULTIVITAMINS/MINERALS TAB PO SCH (08:31)
[2022-04-13] MEDS: HEPARIN SOD (PORCINE) 5,000 UNIT/ML VIAL SC SCH ×2 (08:34→22:05)
[2022-04-13] MEDS: ARTIFICIAL TEARS (OPTH) 15 ML BTL OP SCH ×3 (08:38→21:36)
[2022-04-13] MEDS: ACETAMINOPHEN 325 MG/10 ML UDC NG PRN (12:23)
[2022-04-13] MEDS: INSULIN GLARGINE 100 UNITS/ML VIAL SC SCH (22:06)
[2022-04-14] VITALS (9 sets, daily range): BP systolic 97–108; BP diastolic 47–61
[2022-04-14] MEDS: DEXTROSE 5% 1,000 ML IV SCH (05:20)
[2022-04-14] MEDS: LEVOTHYROXINE SODIUM 75 MCG TAB PEG SCH (05:20)
[2022-04-14] MEDS ORDERED: ONDANSETRON HCL 4 MG ORAL DISINTEGRATING TAB PO PRN (07:15)
[2022-04-14 07:25] LABS: BASOPHILS % 0.3 % (0.0-1.0); EOSINOPHILS # (AUTO) 0.5 (0.0-0.4); EOSINOPHILS % 5.3 % (0.0-6.0); HEMOGLOBIN 9.3 g/dL (14.0-18.0); LYMPHOCYTES # (AUTO) 2.8 (1.0-3.2); LYMPHOCYTES % 30.1 % (18.0-39.1); MEAN CORPUSCULAR VOLUME 96.6 fL (81-99); MONOCYTES # (AUTO) 0.4 (0.2-0.8); NEUTROPHILS # (AUTO) 5.5 (2.1-6.9); NEUTROPHILS % 59.1 % (38.7-80.0); PLATELET COUNT 189 x10e3/uL (140-360); RED BLOOD COUNT 3.21 x10e6/uL (4.3-5.7); RED CELL DISTRIBUTION WIDTH 14.2 % (11.7-14.4)
[2022-04-14 08:01] LABS: ALBUMIN 1.7 g/dL (3.5-5.0); ALBUMIN/GLOBULIN RATIO 0.3 (0.8-2.0); ANION GAP 10.2 mmol/L (8-16); CALCIUM 7.5 mg/dL (8.4-10.2); CREATININE, SERUM 0.84 mg/dL (0.72-1.25); POTASSIUM 3.2 mmol/L (3.5-5.1)
[2022-04-14] MEDS: INSULIN REGULAR, HUMAN 100 UNIT/1 ML SQ SCH ×4 (08:30→21:37)
[2022-04-14] MEDS ORDERED: KCL 20 MEQ PACKET/ ORAL SOLN NG ONE (09:15)
[2022-04-14] MEDS: SODIUM CHLORIDE 0.45% 1,000 ML IV SCH (09:16)
[2022-04-14] MEDS: MULTIVITAMINS/MINERALS TAB PO SCH (09:20)
[2022-04-14] MEDS: HEPARIN SOD (PORCINE) 5,000 UNIT/ML VIAL SC SCH ×2 (09:31→21:31)
[2022-04-14] MEDS: ARTIFICIAL TEARS (OPTH) 15 ML BTL OP SCH ×3 (09:32→21:24)
[2022-04-14] MEDS: BALSAM PERU/CASTOR OIL 60 GM OINT...G. TP SCH (09:33)
[2022-04-14] MEDS: INSULIN GLARGINE 100 UNITS/ML VIAL SC SCH (21:36)
[2022-04-15] VITALS (7 sets, daily range): BP systolic 103–124; BP diastolic 50–68
[2022-04-15] MEDS: LEVOTHYROXINE SODIUM 75 MCG TAB PEG SCH (05:22)
[2022-04-15] MEDS: SODIUM CHLORIDE 0.45% 1,000 ML IV SCH ×2 (05:23→23:37)
[2022-04-15] MEDS: ACETAMINOPHEN 325 MG/10 ML UDC NG PRN ×2 (05:49→17:46)
[2022-04-15 07:32] LABS: ALBUMIN 1.7 g/dL (3.5-5.0); ALBUMIN/GLOBULIN RATIO 0.3 (0.8-2.0); ANION GAP 11.4 mmol/L (8-16); CALCIUM 7.5 mg/dL (8.4-10.2); CREATININE, SERUM 0.79 mg/dL (0.72-1.25); MAGNESIUM 1.8 MG/DL (1.3-2.1); POTASSIUM 3.4 mmol/L (3.5-5.1)
[2022-04-15] MEDS: INSULIN REGULAR, HUMAN 100 UNIT/1 ML SQ SCH ×4 (09:28→20:55)
[2022-04-15] MEDS: MULTIVITAMINS/MINERALS TAB PO SCH (09:38)
[2022-04-15] MEDS: BALSAM PERU/CASTOR OIL 60 GM OINT...G. TP SCH (09:38)
[2022-04-15] MEDS: ARTIFICIAL TEARS (OPTH) 15 ML BTL OP SCH ×3 (09:38→20:53)
[2022-04-15] MEDS: HEPARIN SOD (PORCINE) 5,000 UNIT/ML VIAL SC SCH ×2 (09:39→20:55)
[2022-04-15] MEDS: AZITHROMYCIN 250 MG TAB PO SCH (12:06)
[2022-04-15] MEDS ORDERED: POTASSIUM CHLORIDE 10MEQ EA PEG ONE (15:30)
[2022-04-15] MEDS ORDERED: KCL 20 MEQ PACKET/ ORAL SOLN PEG ONE (16:00)
[2022-04-15] MEDS: INSULIN GLARGINE 100 UNITS/ML VIAL SC SCH (20:55)
[2022-04-16] VITALS (8 sets, daily range): BP systolic 100–152; BP diastolic 50–111
[2022-04-16] MEDS: LEVOTHYROXINE SODIUM 75 MCG TAB PEG SCH (06:12)
[2022-04-16] MEDS: INSULIN REGULAR, HUMAN 100 UNIT/1 ML SQ SCH ×3 (08:33→21:00)
[2022-04-16] MEDS ORDERED: BALSAM PERU/CASTOR OIL 60 GM OINT...G. TP SCH (09:00)
[2022-04-16] MEDS: MULTIVITAMINS/MINERALS TAB PO SCH (10:01)
[2022-04-16] MEDS: BALSAM PERU/CASTOR OIL 60 GM OINT...G. TP SCH (10:02)
[2022-04-16] MEDS: ARTIFICIAL TEARS (OPTH) 15 ML BTL OP SCH ×3 (10:02→21:00)
[2022-04-16] MEDS: ALBUTEROL/IPRATROPIUM 3 ML NEB NEB PRN ×2 (11:00→19:45)
[2022-04-16] MEDS: ACETAMINOPHEN 325 MG/10 ML UDC NG PRN (11:05)
[2022-04-16] MEDS: HEPARIN SOD (PORCINE) 5,000 UNIT/ML VIAL SC SCH ×2 (11:11→21:00)
[2022-04-16] MEDS ORDERED: DEXTROSE 50% SYRINGE 50 ML IV PRN (12:30)
[2022-04-16] MEDS ORDERED: TRAMADOL HCL 50 MG TAB PO ONE (12:30)
[2022-04-16] MEDS: AZITHROMYCIN 250 MG TAB PO SCH (12:33)
[2022-04-16] MEDS: INSULIN GLARGINE 100 UNITS/ML VIAL SC SCH (21:00)
[2022-04-17 04:13] VITALS: BP 128/62
[2022-04-17] MEDS: LEVOTHYROXINE SODIUM 75 MCG TAB PEG SCH (05:18)
[2022-04-17] MEDS: ALBUTEROL/IPRATROPIUM 3 ML NEB NEB PRN ×2 (06:03→19:20)
[2022-04-17 06:36] LABS: ANION GAP 14.8 mmol/L (8-16); CALCIUM 8.4 mg/dL (8.4-10.2); POTASSIUM 4.8 mmol/L (3.5-5.1)
[2022-04-17 07:44] LABS: BASOPHILS # (AUTO) 0.1 (0.0-0.1); BASOPHILS % 0.5 % (0.0-1.0); EOSINOPHILS # (AUTO) 0.2 (0.0-0.4); EOSINOPHILS % 1.3 % (0.0-6.0); HEMATOCRIT 27.7 % (38.2-49.6); HEMOGLOBIN 8.6 g/dL (14.0-18.0); LYMPHOCYTES # (AUTO) 2.1 (1.0-3.2); LYMPHOCYTES % 11.6 % (18.0-39.1); MEAN CORPUSCULAR HEMOGLOBIN 29.9 pg (28-32); MEAN CORPUSCULAR VOLUME 96.2 fL (81-99); MONOCYTES # (AUTO) 0.8 (0.2-0.8); MONOCYTES % 4.2 % (4.4-11.3); NEUTROPHILS # (AUTO) 14.7 (2.1-6.9); NEUTROPHILS % 80.5 % (38.7-80.0); PLATELET COUNT 230 x10e3/uL (140-360); RED BLOOD COUNT 2.88 x10e6/uL (4.3-5.7); RED CELL DISTRIBUTION WIDTH 16.2 % (11.7-14.4)
[2022-04-17 07:55] VITALS: BP 99/87
[2022-04-17] MEDS: INSULIN REGULAR, HUMAN 100 UNIT/1 ML SQ SCH ×4 (08:30→21:00)
[2022-04-17] MEDS: HEPARIN SOD (PORCINE) 5,000 UNIT/ML VIAL SC SCH ×2 (09:45→21:00)
[2022-04-17] MEDS: MULTIVITAMINS/MINERALS TAB PO SCH (09:49)
[2022-04-17] MEDS: BALSAM PERU/CASTOR OIL 60 GM OINT...G. TP SCH (09:49)
[2022-04-17] MEDS: ARTIFICIAL TEARS (OPTH) 15 ML BTL OP SCH ×3 (09:49→20:00)
[2022-04-17 11:33] VITALS: BP 107/58
[2022-04-17 12:16] VITALS: BP 107/58
[2022-04-17] MEDS ORDERED: SODIUM CHLORIDE 0.9% 500ML 500 ML IV ONE ×2 (12:45→16:30)
[2022-04-17] MEDS ORDERED: FUROSEMIDE INJ 10 MG/ML 2 ML VIAL IV ONE (14:30)
[2022-04-17 15:50] VITALS: BP 104/51
[2022-04-17] MEDS ORDERED: BUDESONIDE 0.5MG/2 ML NEB ONE (15:50)
[2022-04-17] MEDS ORDERED: SODIUM CHLORIDE 0.9% 500ML 500 ML ONE (16:20)
[2022-04-17 20:00] VITALS: BP 93/60
[2022-04-17] MEDS: INSULIN GLARGINE 100 UNITS/ML VIAL SQ SCH (21:00)
[2022-04-17] MEDS ORDERED: DIATRIZOATE MEGL/DIATRIZOA SOD 30 ML BTL PO ONE (21:01)
[2022-04-18] VITALS (7 sets, daily range): BP systolic 92–112; BP diastolic 51–64
[2022-04-18] MEDS ORDERED: DIATRIZOATE MEGL/DIATRIZOA SOD 30 ML BTL PO ONE (05:07)
[2022-04-18] MEDS: LEVOTHYROXINE SODIUM 75 MCG TAB PEG SCH (06:00)
[2022-04-18 07:11] LABS: BASOPHILS # (AUTO) 0.1 (0.0-0.1); BASOPHILS % 0.4 % (0.0-1.0); EOSINOPHILS # (AUTO) 0.1 (0.0-0.4); EOSINOPHILS % 0.8 % (0.0-6.0); HEMATOCRIT 29.8 % (38.2-49.6); LYMPHOCYTES # (AUTO) 2.4 (1.0-3.2); LYMPHOCYTES % 13.6 % (18.0-39.1); MEAN CORPUSCULAR HEMOGLOBIN 29.5 pg (28-32); MEAN CORPUSCULAR HGB CONC 30.2 g/dL (31-35); MEAN CORPUSCULAR VOLUME 97.7 fL (81-99); MONOCYTES # (AUTO) 0.8 (0.2-0.8); MONOCYTES % 4.3 % (4.4-11.3); NEUTROPHILS # (AUTO) 13.7 (2.1-6.9); NEUTROPHILS % 78.3 % (38.7-80.0); PLATELET COUNT 219 x10e3/uL (140-360); RED BLOOD COUNT 3.05 x10e6/uL (4.3-5.7); RED CELL DISTRIBUTION WIDTH 16.3 % (11.7-14.4)
[2022-04-18 07:39] LABS: ALBUMIN 1.5 g/dL (3.5-5.0); ALBUMIN/GLOBULIN RATIO 0.3 (0.8-2.0); ANION GAP 12.9 mmol/L (8-16); CREATININE, SERUM 0.85 mg/dL (0.72-1.25); POTASSIUM 3.9 mmol/L (3.5-5.1)
[2022-04-18] MEDS: MULTIVITAMINS/MINERALS TAB PO SCH (09:46)
[2022-04-18] MEDS: ARTIFICIAL TEARS (OPTH) 15 ML BTL OP SCH ×3 (09:47→21:43)
[2022-04-18] MEDS: INSULIN REGULAR, HUMAN 100 UNIT/1 ML SQ SCH ×4 (09:48→21:43)
[2022-04-18] MEDS: BALSAM PERU/CASTOR OIL 60 GM OINT...G. TP SCH (09:50)
[2022-04-18] MEDS: HEPARIN SOD (PORCINE) 5,000 UNIT/ML VIAL SC SCH (09:50)
[2022-04-18] MEDS ORDERED: FUROSEMIDE INJ 10 MG/ML 2 ML VIAL IV NR (12:45)
[2022-04-18] MEDS: ALBUTEROL/IPRATROPIUM 3 ML NEB NEB PRN (12:48)
[2022-04-18] MEDS: ALBUTEROL/IPRATROPIUM 3 ML NEB NEB SCH ×4 (14:00→22:10)
[2022-04-18] MEDS: INSULIN GLARGINE 100 UNITS/ML VIAL SQ SCH (21:42)
[2022-04-19] VITALS (8 sets, daily range): BP systolic 106–121; BP diastolic 53–90
[2022-04-19] MEDS ORDERED: SODIUM CHLORIDE 0.9% 250ML 250 ML ONE (00:51)
[2022-04-19] MEDS: ALBUTEROL/IPRATROPIUM 3 ML NEB NEB SCH ×6 (03:10→23:17)
[2022-04-19 04:53] LABS: BASOPHILS # (AUTO) 0.1 (0.0-0.1); BASOPHILS % 0.3 % (0.0-1.0); EOSINOPHILS # (AUTO) 0.2 (0.0-0.4); EOSINOPHILS % 0.8 % (0.0-6.0); HEMATOCRIT 27.6 % (38.2-49.6); HEMOGLOBIN 8.2 g/dL (14.0-18.0); LYMPHOCYTES # (AUTO) 2.9 (1.0-3.2); LYMPHOCYTES % 15.6 % (18.0-39.1); MEAN CORPUSCULAR HGB CONC 29.7 g/dL (31-35); MEAN CORPUSCULAR VOLUME 97.5 fL (81-99); MONOCYTES # (AUTO) 0.7 (0.2-0.8); MONOCYTES % 3.9 % (4.4-11.3); NEUTROPHILS # (AUTO) 14.3 (2.1-6.9); NEUTROPHILS % 77.1 % (38.7-80.0); PLATELET COUNT 338 x10e3/uL (140-360); RED BLOOD COUNT 2.83 x10e6/uL (4.3-5.7); RED CELL DISTRIBUTION WIDTH 16.1 % (11.7-14.4)
[2022-04-19 05:14] LABS: ANION GAP 12.3 mmol/L (8-16); CALCIUM 7.7 mg/dL (8.4-10.2); CREATININE, SERUM 0.95 mg/dL (0.72-1.25); POTASSIUM 3.3 mmol/L (3.5-5.1)
[2022-04-19] MEDS: INSULIN REGULAR, HUMAN 100 UNIT/1 ML SQ SCH ×5 (05:36→20:49)
[2022-04-19] MEDS: LEVOTHYROXINE SODIUM 75 MCG TAB PEG SCH (05:39)
[2022-04-19] MEDS ORDERED: POTASSIUM CHLORIDE 20MEQ/15ML UDC NG STA (08:29)
[2022-04-19] MEDS: MULTIVITAMINS/MINERALS TAB PO SCH (10:29)
[2022-04-19] MEDS: ARTIFICIAL TEARS (OPTH) 15 ML BTL OP SCH ×3 (10:29→20:38)
[2022-04-19] MEDS: ACETYLCYSTEINE 200 MG/ML 4ML VIAL INH SCH ×4 (10:37→23:17)
[2022-04-19] MEDS ORDERED: KCL 20 MEQ PACKET/ ORAL SOLN NG NR (10:45)
[2022-04-19] MEDS: BALSAM PERU/CASTOR OIL 60 GM OINT...G. TP SCH (15:31)
[2022-04-19] MEDS: GUAIFENESIN/DEXTROMETHORPHAN LIQD 5 ML UDC PEG SCH (18:25)
[2022-04-19] MEDS ORDERED: INSULIN GLARGINE 100 UNITS/ML VIAL SQ SCH (21:00)
[2022-04-20] VITALS (8 sets, daily range): BP systolic 104–114; BP diastolic 56–79
[2022-04-20] MEDS: ALBUTEROL/IPRATROPIUM 3 ML NEB NEB SCH ×6 (03:35→23:40)
[2022-04-20] MEDS: ACETYLCYSTEINE 200 MG/ML 4ML VIAL INH SCH ×6 (03:35→23:40)
[2022-04-20] MEDS: LEVOTHYROXINE SODIUM 75 MCG TAB PEG SCH (05:16)
[2022-04-20 05:18] LABS: BASOPHILS % 0.2 % (0.0-1.0); EOSINOPHILS # (AUTO) 0.4 (0.0-0.4); EOSINOPHILS % 2.4 % (0.0-6.0); HEMOGLOBIN 8.2 g/dL (14.0-18.0); LYMPHOCYTES # (AUTO) 3.1 (1.0-3.2); MEAN CORPUSCULAR HEMOGLOBIN 29.1 pg (28-32); MEAN CORPUSCULAR HGB CONC 29.3 g/dL (31-35); MEAN CORPUSCULAR VOLUME 99.3 fL (81-99); MONOCYTES # (AUTO) 0.7 (0.2-0.8); MONOCYTES % 4.1 % (4.4-11.3); NEUTROPHILS # (AUTO) 11.9 (2.1-6.9); NEUTROPHILS % 72.1 % (38.7-80.0); PLATELET COUNT 356 x10e3/uL (140-360); RED BLOOD COUNT 2.82 x10e6/uL (4.3-5.7); RED CELL DISTRIBUTION WIDTH 16.2 % (11.7-14.4)
[2022-04-20 05:39] LABS: ANION GAP 14.5 mmol/L (8-16); CALCIUM 7.7 mg/dL (8.4-10.2); CREATININE, SERUM 1.06 mg/dL (0.72-1.25); PHOSPHORUS 1.9 MG/DL (2.3-4.7); POTASSIUM 3.5 mmol/L (3.5-5.1)
[2022-04-20] MEDS: INSULIN REGULAR, HUMAN 100 UNIT/1 ML SQ SCH ×5 (05:48→21:49)
[2022-04-20 06:00] LABS: THYROID STIMULATING HORMONE 5.223 uIU/mL (0.350-4.940)
[2022-04-20] MEDS: MULTIVITAMINS/MINERALS TAB PO SCH (08:48)
[2022-04-20] MEDS: GUAIFENESIN/DEXTROMETHORPHAN LIQD 5 ML UDC PEG SCH ×2 (08:48→17:08)
[2022-04-20] MEDS: ARTIFICIAL TEARS (OPTH) 15 ML BTL OP SCH ×3 (08:49→21:50)
[2022-04-20] MEDS: BALSAM PERU/CASTOR OIL 60 GM OINT...G. TP SCH (08:49)
[2022-04-20] MEDS: ACETAMINOPHEN 325 MG/10 ML UDC NG PRN ×2 (09:18→23:05)
[2022-04-20] MEDS ORDERED: INSULIN GLARGINE 100 UNITS/ML VIAL SQ SCH ×2 (21:00)
[2022-04-21] VITALS (8 sets, daily range): BP systolic 106–115; BP diastolic 54–65
[2022-04-21] MEDS: ALBUTEROL/IPRATROPIUM 3 ML NEB NEB SCH ×6 (02:55→23:30)
[2022-04-21] MEDS: ACETYLCYSTEINE 200 MG/ML 4ML VIAL INH SCH ×6 (02:55→23:30)
[2022-04-21] MEDS: LEVOTHYROXINE SODIUM 75 MCG TAB PEG SCH (05:44)
[2022-04-21 05:50] LABS: BASOPHILS % 0.2 % (0.0-1.0); EOSINOPHILS # (AUTO) 0.3 (0.0-0.4); EOSINOPHILS % 1.8 % (0.0-6.0); HEMATOCRIT 27.6 % (38.2-49.6); HEMOGLOBIN 8.1 g/dL (14.0-18.0); LYMPHOCYTES # (AUTO) 2.6 (1.0-3.2); LYMPHOCYTES % 14.9 % (18.0-39.1); MEAN CORPUSCULAR HEMOGLOBIN 28.9 pg (28-32); MEAN CORPUSCULAR HGB CONC 29.3 g/dL (31-35); MEAN CORPUSCULAR VOLUME 98.6 fL (81-99); MONOCYTES # (AUTO) 0.6 (0.2-0.8); MONOCYTES % 3.2 % (4.4-11.3); NEUTROPHILS # (AUTO) 13.8 (2.1-6.9); NEUTROPHILS % 78.2 % (38.7-80.0); PLATELET COUNT 393 x10e3/uL (140-360); RED CELL DISTRIBUTION WIDTH 16.4 % (11.7-14.4)
[2022-04-21 06:18] LABS: CALCIUM 7.6 mg/dL (8.4-10.2); CREATININE, SERUM 0.84 mg/dL (0.72-1.25)
[2022-04-21] MEDS: INSULIN REGULAR, HUMAN 100 UNIT/1 ML SQ SCH ×4 (07:15→21:47)
[2022-04-21] MEDS: BALSAM PERU/CASTOR OIL 60 GM OINT...G. TP SCH (09:00)
[2022-04-21] MEDS: ARTIFICIAL TEARS (OPTH) 15 ML BTL OP SCH ×3 (09:00→21:29)
[2022-04-21] MEDS: MULTIVITAMINS/MINERALS TAB PO SCH (09:00)
[2022-04-21] MEDS: GUAIFENESIN/DEXTROMETHORPHAN LIQD 5 ML UDC PEG SCH ×2 (09:00→17:00)
[2022-04-21] MEDS ORDERED: POTASSIUM CHLORIDE 20MEQ/15ML UDC NG NR (12:15)
[2022-04-21] MEDS: INSULIN GLARGINE 100 UNITS/ML VIAL SQ SCH ×2 (12:15→21:47)
[2022-04-21] MEDS ORDERED: DEXTROSE 50% SYRINGE 50 ML IV PRN (12:15)
[2022-04-21] MEDS: METOCLOPRAMIDE HCL 10MG/10ML UDC GT SCH ×2 (14:00→21:29)
[2022-04-22] VITALS (8 sets, daily range): BP systolic 105–123; BP diastolic 56–94
[2022-04-22] MEDS: ACETYLCYSTEINE 200 MG/ML 4ML VIAL INH SCH ×6 (03:30→23:35)
[2022-04-22] MEDS: ALBUTEROL/IPRATROPIUM 3 ML NEB NEB SCH ×6 (03:30→23:35)
[2022-04-22 05:56] LABS: BASOPHILS # (AUTO) 0.1 (0.0-0.1); BASOPHILS % 0.4 % (0.0-1.0); EOSINOPHILS # (AUTO) 0.5 (0.0-0.4); EOSINOPHILS % 2.4 % (0.0-6.0); HEMATOCRIT 30.1 % (38.2-49.6); HEMOGLOBIN 8.8 g/dL (14.0-18.0); LYMPHOCYTES # (AUTO) 3.2 (1.0-3.2); LYMPHOCYTES % 14.8 % (18.0-39.1); MEAN CORPUSCULAR HEMOGLOBIN 28.8 pg (28-32); MEAN CORPUSCULAR HGB CONC 29.2 g/dL (31-35); MEAN CORPUSCULAR VOLUME 98.4 fL (81-99); MONOCYTES # (AUTO) 0.7 (0.2-0.8); NEUTROPHILS # (AUTO) 16.6 (2.1-6.9); NEUTROPHILS % 77.2 % (38.7-80.0); PLATELET COUNT 490 x10e3/uL (140-360); RED BLOOD COUNT 3.06 x10e6/uL (4.3-5.7); RED CELL DISTRIBUTION WIDTH 16.7 % (11.7-14.4)
[2022-04-22] MEDS: LEVOTHYROXINE SODIUM 75 MCG TAB PEG SCH (06:16)
[2022-04-22] MEDS: METOCLOPRAMIDE HCL 10MG/10ML UDC GT SCH ×3 (06:16→20:52)
[2022-04-22 06:48] LABS: ANION GAP 13.2 mmol/L (8-16); CALCIUM 7.5 mg/dL (8.4-10.2); CREATININE, SERUM 0.95 mg/dL (0.72-1.25); POTASSIUM 3.2 mmol/L (3.5-5.1)
[2022-04-22] MEDS: INSULIN REGULAR, HUMAN 100 UNIT/1 ML SQ SCH ×4 (07:45→21:00)
[2022-04-22] MEDS: BALSAM PERU/CASTOR OIL 60 GM OINT...G. TP SCH (08:15)
[2022-04-22] MEDS ORDERED: POTASSIUM CHLORIDE 20 MEQ TAB CR PO SCH (09:00)
[2022-04-22] MEDS: INSULIN GLARGINE 100 UNITS/ML VIAL SQ SCH ×2 (10:02→21:00)
[2022-04-22] MEDS: ARTIFICIAL TEARS (OPTH) 15 ML BTL OP SCH ×3 (10:02→21:00)
[2022-04-22] MEDS: DEXTROSE 5% 1,000 ML IV SCH ×2 (10:02→20:53)
[2022-04-22] MEDS: GUAIFENESIN/DEXTROMETHORPHAN LIQD 5 ML UDC PEG SCH ×2 (10:04→17:08)
[2022-04-22] MEDS: MULTIVITAMINS/MINERALS TAB PO SCH (10:04)
[2022-04-22] MEDS: KCL 20 MEQ PACKET/ ORAL SOLN PO SCH ×2 (10:17→15:39)
[2022-04-22 11:07] LABS: ANISOCYTOSIS SLIGHT; BAND NEUTROPHILS % (MANUAL) 4 %; EOSINOPHILS % (MANUAL) 7 % (0-7); HYPOCHROMASIA SLIGHT; LYMPHOCYTES % (MANUAL) 11 % (19-48); MONOCYTES % (MANUAL) 3 % (3.4-9.0); NEUTROPHILS % (MANUAL) 75 % (40-74); PLATELET ESTIMATE ADEQUATE; PLATELET MORPHOLOGY COMMENT NORMAL; RBC MORPHOLOGY COMMENT NORMAL
[2022-04-23] MEDS: ALBUTEROL/IPRATROPIUM 3 ML NEB NEB SCH ×6 (03:35→23:30)
[2022-04-23] MEDS: ACETYLCYSTEINE 200 MG/ML 4ML VIAL INH SCH ×5 (03:35→20:15)
[2022-04-23 04:59] LABS: BASOPHILS # (AUTO) 0.1 (0.0-0.1); BASOPHILS % 0.5 % (0.0-1.0); EOSINOPHILS # (AUTO) 0.7 (0.0-0.4); EOSINOPHILS % 3.6 % (0.0-6.0); HEMATOCRIT 29.3 % (38.2-49.6); HEMOGLOBIN 8.4 g/dL (14.0-18.0); LYMPHOCYTES # (AUTO) 4.3 (1.0-3.2); LYMPHOCYTES % 21.7 % (18.0-39.1); MEAN CORPUSCULAR HEMOGLOBIN 28.9 pg (28-32); MEAN CORPUSCULAR HGB CONC 28.7 g/dL (31-35); MEAN CORPUSCULAR VOLUME 100.7 fL (81-99); MONOCYTES # (AUTO) 0.5 (0.2-0.8); MONOCYTES % 2.5 % (4.4-11.3); NEUTROPHILS # (AUTO) 13.8 (2.1-6.9); PLATELET COUNT 339 x10e3/uL (140-360); RED BLOOD COUNT 2.91 x10e6/uL (4.3-5.7); RED CELL DISTRIBUTION WIDTH 16.7 % (11.7-14.4)
[2022-04-23 05:17] LABS: ANION GAP 12.8 mmol/L (8-16); CALCIUM 7.5 mg/dL (8.4-10.2); CREATININE, SERUM 0.88 mg/dL (0.72-1.25); POTASSIUM 3.8 mmol/L (3.5-5.1)
[2022-04-23] MEDS: LEVOTHYROXINE SODIUM 75 MCG TAB PEG SCH (06:11)
[2022-04-23] MEDS: METOCLOPRAMIDE HCL 10MG/10ML UDC GT SCH ×3 (06:11→21:48)
[2022-04-23] MEDS: INSULIN REGULAR, HUMAN 100 UNIT/1 ML SQ SCH ×4 (07:30→21:00)
[2022-04-23 08:14] VITALS: BP 94/59
[2022-04-23 08:21] VITALS: BP 94/59
[2022-04-23 08:49] LABS: EOSINOPHILS % (MANUAL) 4 % (0-7); LYMPHOCYTES % (MANUAL) 20 % (19-48); MONOCYTES % (MANUAL) 5 % (3.4-9.0); NEUTROPHILS % (MANUAL) 70 % (40-74); NUCLEATED RED BLOOD CELLS 1
[2022-04-23 08:50] LABS: ANISOCYTOSIS SLIGHT; HYPOCHROMASIA SLIGHT; PLATELET ESTIMATE ADEQUATE; PLATELET MORPHOLOGY COMMENT NORMAL; RBC MORPHOLOGY COMMENT NORMAL; TOXIC GRANULATION MODERATE
[2022-04-23] MEDS ORDERED: DEXTROSE 5% 500ML 500 ML IV ONE (10:00)
[2022-04-23] MEDS: GUAIFENESIN/DEXTROMETHORPHAN LIQD 5 ML UDC PEG SCH ×3 (10:30→21:48)
[2022-04-23] MEDS: MULTIVITAMINS/MINERALS TAB PO SCH (10:30)
[2022-04-23] MEDS: INSULIN GLARGINE 100 UNITS/ML VIAL SQ SCH ×2 (10:30→21:00)
[2022-04-23] MEDS: ARTIFICIAL TEARS (OPTH) 15 ML BTL OP SCH ×3 (10:31→22:16)
[2022-04-23] MEDS: BALSAM PERU/CASTOR OIL 60 GM OINT...G. TP SCH (10:31)
[2022-04-23 12:10] VITALS: BP 122/69
[2022-04-23 16:16] VITALS: BP 104/56
[2022-04-23 20:00] VITALS: BP 99/55
[2022-04-23 23:39] VITALS: BP 101/49
[2022-04-24] MEDS: ALBUTEROL/IPRATROPIUM 3 ML NEB NEB SCH ×3 (03:05→10:50)
[2022-04-24 03:44] VITALS: BP 102/68
[2022-04-24 04:40] LABS: BASOPHILS # (AUTO) 0.1 (0.0-0.1); BASOPHILS % 0.3 % (0.0-1.0); EOSINOPHILS # (AUTO) 0.7 (0.0-0.4); EOSINOPHILS % 4.3 % (0.0-6.0); HEMATOCRIT 26.5 % (38.2-49.6); HEMOGLOBIN 7.8 g/dL (14.0-18.0); LYMPHOCYTES # (AUTO) 3.8 (1.0-3.2); MEAN CORPUSCULAR HEMOGLOBIN 29.2 pg (28-32); MEAN CORPUSCULAR HGB CONC 29.4 g/dL (31-35); MEAN CORPUSCULAR VOLUME 99.3 fL (81-99); MONOCYTES # (AUTO) 0.4 (0.2-0.8); MONOCYTES % 2.4 % (4.4-11.3); NEUTROPHILS % 69.7 % (38.7-80.0); PLATELET COUNT 442 x10e3/uL (140-360); RED BLOOD COUNT 2.67 x10e6/uL (4.3-5.7); RED CELL DISTRIBUTION WIDTH 16.5 % (11.7-14.4)
[2022-04-24 04:55] VITALS: BP 102/68
[2022-04-24 04:56] LABS: ANION GAP 12.2 mmol/L (8-16); CALCIUM 7.2 mg/dL (8.4-10.2); CREATININE, SERUM 0.78 mg/dL (0.72-1.25); POTASSIUM 3.2 mmol/L (3.5-5.1)
[2022-04-24] MEDS ORDERED: ZOSYN 3.373.375 GM/5 IVP (05:08)
[2022-04-24] MEDS: LEVOTHYROXINE SODIUM 75 MCG TAB PEG SCH (06:06)
[2022-04-24] MEDS: METOCLOPRAMIDE HCL 10MG/10ML UDC GT SCH (06:06)
[2022-04-24 07:57] VITALS: BP 111/54
[2022-04-24] MEDS: ACETYLCYSTEINE 200 MG/ML 4ML VIAL INH SCH ×2 (08:39→10:50)
[2022-04-24] MEDS: MULTIVITAMINS/MINERALS TAB PO SCH (08:43)
[2022-04-24] MEDS ORDERED: BALSAM PERU/CASTOR OIL 60 GM OINT...G. TP SCH (09:00)
[2022-04-24 10:31] VITALS: BP 111/54
[2022-04-24 12:03] VITALS: BP 116/60
== END 2022-04-24 13:30 | DRG 871 ==
LOC: ER 12:49 → ERHOLD 13:41 → ICU 14:30 → MED/SURG3 04-13 15:37
PROVIDERS: ADMIT Internal Medicine; ATTEND Internal Medicine
PROC: 02HV33Z Insertion of Infusion Device into Superior Vena Cava, Percutaneous Approach (ICD-10-PCS; principal; 2022-04-11)
PROC: 3E03329 Introduction of Other Anti-infective into Peripheral Vein, Percutaneous Approach (ICD-10-PCS; 2022-04-13)
DX: A41.9 Sepsis, unspecified organism (principal); G93.41 Metabolic encephalopathy; J69.0 Pneumonitis due to inhalation of food and vomit; E87.0 Hyperosmolality and hypernatremia; G93.1 Anoxic brain damage, not elsewhere classified; E44.0 Moderate protein-calorie malnutrition; N17.9 Acute kidney failure, unspecified; R65.20 Severe sepsis without septic shock; E11.65 Type 2 diabetes mellitus with hyperglycemia; E03.9 Hypothyroidism, unspecified; Z66 Do not resuscitate; E87.6 Hypokalemia; N31.2 Flaccid neuropathic bladder, not elsewhere classified; R62.7 Adult failure to thrive; Z68.23 Body mass index [BMI] 23.0-23.9, adult; F32.A Depression, unspecified; Z96.642 Presence of left artificial hip joint; R13.12 Dysphagia, oropharyngeal phase; Z79.4 Long term (current) use of insulin; Z93.1 Gastrostomy status; M19.90 Unspecified osteoarthritis, unspecified site; E78.5 Hyperlipidemia, unspecified; Z20.822 Contact with and (suspected) exposure to COVID-19
CPT/HCPCS: 36415; 36600; 71045; 74018; 80048; 80053; 81001; 82805; 82948; 83605; 83735; 83880; 84100; 84443; 84484; 85025; 87040; 93005; 94640; 94667; 94668; 94669; 94799; 96372; 99251; 99284; J0456; J0692; J1644; J1815; J1817; J1940; J2543; J3370; J3480; J7040; J7050; J7060; J7070; J7121; Q9963

== ENCOUNTER 2022-04-29 20:30 | Inpatient (IN) | payer MEDICARE, OTHER ==
[~2022-04-29] VITALS: Ht 185.4 cm; Wt 74.8 kg
[~2022-04-29 20:30] MED LIST changes: +JUVEN PACKET1 EACH; +MULTIVITAMINS1 EAC6 PO; +OYSTER SHELL C1 EA12 PO; +ZOSYN 3.373.375 GM/5 IVP
[2022-04-29 21:06] LABS: BASOPHILS % 0.2 % (0.0-1.0); EOSINOPHILS # (AUTO) 0.4 (0.0-0.4); EOSINOPHILS % 2.2 % (0.0-6.0); HEMATOCRIT 36.1 % (38.2-49.6); HEMOGLOBIN 10.8 g/dL (14.0-18.0); LYMPHOCYTES # (AUTO) 3.7 (1.0-3.2); LYMPHOCYTES % 22.4 % (18.0-39.1); MEAN CORPUSCULAR HGB CONC 29.9 g/dL (31-35); MEAN CORPUSCULAR VOLUME 96.8 fL (81-99); MONOCYTES # (AUTO) 0.5 (0.2-0.8); MONOCYTES % 3.2 % (4.4-11.3); NEUTROPHILS # (AUTO) 11.6 (2.1-6.9); NEUTROPHILS % 70.7 % (38.7-80.0); PLATELET COUNT 516 x10e3/uL (140-360); RED BLOOD COUNT 3.73 x10e6/uL (4.3-5.7); RED CELL DISTRIBUTION WIDTH 16.6 % (11.7-14.4)
[2022-04-29 21:20] LABS: ANION GAP 12.6 mmol/L (8-16); CALCIUM 8.1 mg/dL (8.4-10.2); CREATININE, SERUM 0.75 mg/dL (0.72-1.25); POTASSIUM 4.6 mmol/L (3.5-5.1)
[2022-04-29] MEDS ORDERED: PIPERACILLIN/TAZOBACTAM 4.5 GM in SODIUM CHLORIDE 0.9% 100 ML IV STA (22:02)
[2022-04-29] MEDS: SODIUM CHLORIDE 0.9% 1000ML 1,000 ML IV SCH (22:15)
[2022-04-29] MEDS ORDERED: LACTATED RINGER'S 1,000 ML INJ ONE ×2 (22:15)
[2022-04-29] MEDS ORDERED: FENTANYL CITRATE/PF 100MCG/2 ML INJ IV STA (22:37)
[2022-04-29] MEDS ORDERED: DEXTROSE 50% SYRINGE 50 ML IV PRN (23:30)
[2022-04-30] VITALS (17 sets, daily range): BP systolic 98–117; BP diastolic 45–65
[2022-04-30] MEDS ORDERED: ACETAMINOPHEN 1000 MG/100 ML IV SCH
[2022-04-30] MEDS ORDERED: IMODIUM A-1 MG/7.5 M PO (01:19)
[2022-04-30] MEDS ORDERED: MULTIVITAMINS1 EAC6 GT (01:19)
[2022-04-30] MEDS ORDERED: ACIDOPHILUS1 EAC1 GT (01:19)
[2022-04-30] MEDS ORDERED: LACTATED RINGER'S 1,000 ML ONE (04:14)
[2022-04-30] MEDS: SODIUM CHLORIDE 0.9% 1000ML 1,000 ML IV SCH (05:19)
[2022-04-30 06:17] LABS: BASOPHILS # (AUTO) 0.1 (0.0-0.1); BASOPHILS % 0.5 % (0.0-1.0); EOSINOPHILS # (AUTO) 0.6 (0.0-0.4); HEMATOCRIT 23.9 % (38.2-49.6); LYMPHOCYTES # (AUTO) 3.1 (1.0-3.2); LYMPHOCYTES % 31.2 % (18.0-39.1); MEAN CORPUSCULAR HEMOGLOBIN 28.9 pg (28-32); MEAN CORPUSCULAR HGB CONC 29.3 g/dL (31-35); MEAN CORPUSCULAR VOLUME 98.8 fL (81-99); MONOCYTES # (AUTO) 0.4 (0.2-0.8); MONOCYTES % 3.5 % (4.4-11.3); NEUTROPHILS # (AUTO) 5.8 (2.1-6.9); NEUTROPHILS % 57.6 % (38.7-80.0); RED BLOOD COUNT 2.42 x10e6/uL (4.3-5.7); RED CELL DISTRIBUTION WIDTH 16.5 % (11.7-14.4)
[2022-04-30 06:27] LABS: PLATELET COUNT 357 x10e3/uL (140-360)
[2022-04-30 06:46] LABS: ANION GAP 14.2 mmol/L (8-16); CREATININE, SERUM 0.6 mg/dL (0.72-1.25); POTASSIUM 3.2 mmol/L (3.5-5.1)
[2022-04-30] MEDS: INSULIN LISPRO 100 UNIT/1 ML 3ML VIAL SQ SCH ×4 (08:55→20:45)
[2022-04-30] MEDS ORDERED: POTASSIUM CHLORIDE 10MEQ/100ML 200 ML IV ONE (09:00)
[2022-04-30] MEDS ORDERED: SODIUM CHLORIDE 0.9% 250ML 250 ML IV ONE (09:00)
[2022-04-30] MEDS ORDERED: FUROSEMIDE INJ 10 MG/ML 2 ML VIAL IV ONE (13:00)
[2022-04-30] MEDS: METOCLOPRAMIDE HCL 10MG/10ML UDC GT SCH (17:40)
[2022-05-01] MEDS: METOCLOPRAMIDE HCL 10MG/10ML UDC GT SCH ×4 (00:33→16:58)
[2022-05-01 04:29] VITALS: BP 113/51
[2022-05-01 06:35] LABS: BASOPHILS # (AUTO) 0.1 (0.0-0.1); BASOPHILS % 0.8 % (0.0-1.0); EOSINOPHILS # (AUTO) 1.1 (0.0-0.4); EOSINOPHILS % 10.4 % (0.0-6.0); HEMATOCRIT 36.8 % (38.2-49.6); HEMOGLOBIN 11.8 g/dL (14.0-18.0); LYMPHOCYTES % 28.3 % (18.0-39.1); MEAN CORPUSCULAR HEMOGLOBIN 29.7 pg (28-32); MEAN CORPUSCULAR HGB CONC 32.1 g/dL (31-35); MEAN CORPUSCULAR VOLUME 92.7 fL (81-99); MONOCYTES # (AUTO) 0.6 (0.2-0.8); MONOCYTES % 5.3 % (4.4-11.3); NEUTROPHILS # (AUTO) 5.7 (2.1-6.9); NEUTROPHILS % 53.6 % (38.7-80.0); PLATELET COUNT 373 x10e3/uL (140-360); RED BLOOD COUNT 3.97 x10e6/uL (4.3-5.7); RED CELL DISTRIBUTION WIDTH 17.4 % (11.7-14.4)
[2022-05-01 07:23] LABS: ANION GAP 10.9 mmol/L (8-16); CALCIUM 7.8 mg/dL (8.4-10.2); CREATININE, SERUM 0.74 mg/dL (0.72-1.25); POTASSIUM 3.9 mmol/L (3.5-5.1)
[2022-05-01 08:11] VITALS: BP 120/61
[2022-05-01] MEDS: INSULIN LISPRO 100 UNIT/1 ML 3ML VIAL SQ SCH ×3 (08:13→16:58)
[2022-05-01 08:21] VITALS: BP 120/61
[2022-05-01] MEDS ORDERED: COLLAGENASE 5 GM TUBE TOP SCH (09:00)
[2022-05-01] MEDS ORDERED: BALSAM PERU/CASTOR OIL 60 GM OINT...G. TP SCH (09:00)
[2022-05-01 11:44] VITALS: BP 116/65
[2022-05-01] MEDS ORDERED: VANCOMYCIN 250MG/5ML ORAL SOLN GT SCH (12:00)
[2022-05-01] MEDS: VANCOMYCIN 250MG/5ML ORAL SOLN GT SCH ×2 (14:40→16:58)
[2022-05-01 15:39] VITALS: BP 116/62
== END 2022-05-01 20:17 | DRG 871 ==
LOC: ER 20:36 → ERHOLD 22:08 → ICU 04-30 → MED/SURG3 04-30 18:05
PROVIDERS: ADMIT Internal Medicine; ATTEND Internal Medicine
PROC: 02HV33Z Insertion of Infusion Device into Superior Vena Cava, Percutaneous Approach (ICD-10-PCS; principal; 2022-04-29)
PROC: 30243N1 Transfusion of Nonautologous Red Blood Cells into Central Vein, Percutaneous Approach (ICD-10-PCS; 2022-04-29)
PROC: 3E04329 Introduction of Other Anti-infective into Central Vein, Percutaneous Approach (ICD-10-PCS; 2022-04-29)
DX: A41.9 Sepsis, unspecified organism (principal); G93.41 Metabolic encephalopathy; J69.0 Pneumonitis due to inhalation of food and vomit; E44.0 Moderate protein-calorie malnutrition; L97.428 Non-pressure chronic ulcer of left heel and midfoot with other specified severity; L97.418 Non-pressure chronic ulcer of right heel and midfoot with other specified severity; E87.1 Hypo-osmolality and hyponatremia; G93.1 Anoxic brain damage, not elsewhere classified; R13.12 Dysphagia, oropharyngeal phase; Z68.21 Body mass index [BMI] 21.0-21.9, adult; J44.9 Chronic obstructive pulmonary disease, unspecified; E78.5 Hyperlipidemia, unspecified; E11.69 Type 2 diabetes mellitus with other specified complication; F32.A Depression, unspecified; Z93.1 Gastrostomy status; R19.7 Diarrhea, unspecified; Z66 Do not resuscitate; E87.6 Hypokalemia; E83.51 Hypocalcemia; E11.65 Type 2 diabetes mellitus with hyperglycemia; M19.90 Unspecified osteoarthritis, unspecified site; E11.621 Type 2 diabetes mellitus with foot ulcer; Z79.899 Other long term (current) drug therapy; L89.159 Pressure ulcer of sacral region, unspecified stage; N31.9 Neuromuscular dysfunction of bladder, unspecified; Z20.822 Contact with and (suspected) exposure to COVID-19; D64.9 Anemia, unspecified; M16.10 Unilateral primary osteoarthritis, unspecified hip; Z96.642 Presence of left artificial hip joint; R65.20 Severe sepsis without septic shock
CPT/HCPCS: 0223U; 36415; 36569; 71045; 80048; 82948; 83605; 85025; 86850; 86900; 86920; 87040; 93005; 94799; 96372; 99251; 99285; J0610; J1940; J2543; J3010; J3480; J7030; J7050; J7121; P9016